=== PATIENT | female | born 1955 | race Caucasian/White ===

== ENCOUNTER → 2024-04-25 14:02 | Outpatient (REF) | payer MEDICARE, BC, SELFPAY | LOC: RAD 14:02 | PROVIDERS: ATTENDING PHYSICIAN Internal Medicine Critical Care Medicine; FAMILY PHYSICIAN Physician Assistant Medical | DX: R91.1 Solitary pulmonary nodule (principal) | CPT/HCPCS: 71250 ==

== ENCOUNTER → 2024-05-19 12:53 | Outpatient (REF) | payer MEDICARE, BC, SELFPAY | LOC: WDC 12:53 | PROVIDERS: ATTENDING PHYSICIAN Physician Assistant Medical | DX: Z13.820 Encounter for screening for osteoporosis (principal); Z12.31 Encounter for screening mammogram for malignant neoplasm of breast; Z78.0 Asymptomatic menopausal state | CPT/HCPCS: 77063; 77067; 77080 ==